=== PATIENT | female | born 1940 | race Caucasian/White ===

== ENCOUNTER 2019-12-19 17:01 | Emergency (ER) | payer OTHER ==
[~2019-12-19] VITALS: Ht 144.8 cm; Wt 74.8 kg
[2019-12-19 20:16] VITALS: BP 154/93
[2019-12-20] MEDS ORDERED: WELLBUTRIN XL300 MG PO (01:58)
[2019-12-20] MEDS ORDERED: [UNRECOGNIZED DRUG - OTHER] PO (01:58)
[2019-12-20] MEDS ORDERED: OMEPRAZOLE 20 M20 M1 PO (01:59)
[2019-12-20] MEDS ORDERED: NEURONTIN300 MG PO (01:59)
[2019-12-20] MEDS ORDERED: LIPITOR 20 MG T20 M1 PO (02:05)
[2019-12-20] MEDS ORDERED: LIPITOR20 MG PO (02:09)
[2019-12-20] MEDS ORDERED: FISH OIL 1,0001 EAC9 PO (02:24)
[2019-12-20] MEDS ORDERED: SUPER THERAVIT1 EACH PO (02:25)
== END 2019-12-19 20:15 | disposition home or self-care (01) ==
LOC: ER 17:01
DX: R41.0 Disorientation, unspecified (principal); T42.4X5A Adverse effect of benzodiazepines, initial encounter; Z79.899 Other long term (current) drug therapy; Z87.891 Personal history of nicotine dependence; Y92.89 Other specified places as the place of occurrence of the external cause